=== PATIENT | male | born 2000 | race American Indian/Alaskan Native ===

== ENCOUNTER 2020-09-19 17:06 | Emergency (ER) | payer OTHER ==
--- NOTE | 2020-09-19 17:52 | Event Note ---
ED Screening Note Date of service: 09/19/20 Time: 17:50 ED Screening Note: 20-year-old male patient presents to emergency department for mental health evaluation. He has been exhibiting delusions and hallucinations. He is accompanied by security; [address] General: Awake, alert, no acute distress. Neck: Supple. Full range of motion intact. Cardiovascular: Normal peripheral perfusion. Pulmonary: No respiratory distress. Patient is speaking normally without use of accessory muscles. Skin: No apparent rashes or lesions. Neurological: No facial asymmetry. Speech is clear. Follows commands. Patient is alert and oriented. Musculoskeletal: Moves all four extremities spontaneously with normal range of motion. Psych: Cooperative. Circumstantial speech. This initial assessment/diagnostic orders/clinical plan/treatment(s) is/are subject to change based on patients health status, clinical progression and re- assessment by fellow clinical providers in the ED. Further treatment and workup at subsequent clinical providers discretion. Patient/guardian urged not to elope from the ED as their condition may be serious if not clinically assessed and managed.
[2020-09-19] MEDS ORDERED: HALOPERIDOL LACTATE 5 MG/1 ML INJ IM PRN (18:02)
--- NOTE | 2020-09-19 18:03 | Emergency Department Report ---
ED General Adult HPI - General Chief complaint: Psych Stated complaint: OFF MEDICATION PUI?: No Time Seen by Provider: 09/19/20 18:01 Source: patient, EMS ( EMS documentation not available at time of chart dictation ), RN notes reviewed Mode of arrival: Ambulatory Limitations: Other (Acute psychosis) - History of Present Illness Initial comments: The patient was evaluated in the emergency department for symptoms described in the history of present illness. He/she was evaluated in the context of the global COVID-19 pandemic, which necessitated consideration that the patient might be at risk for infection with the virus that causes COVID-19. Institutional protocols and algorithms that pertain to the evaluation of patient s at risk for COVID-19 are in a state of rapid change based on information released by regulatory bodies including the CDC and federal and state organizations. These policies and algorithms were followed during the patient's care in the emergency department. Please note that these policies, procedures and recommendations changed on a rapid basis. Primary CARE doctor: Wilkeson rei This patient is a 20-year-old gentleman who appears to have a history of bipolar disorder. He also has a history of schizophrenia. He is supposed to be on olanzapine, 5 mg. He is apparently brought to the hospital today on 1012, for acute psychosis. As per enclosed psychiatric documentation, patient was found to be tangential, out of touch with reality, acute psychosis, "thinks he is Infinity years old, not med compliant." Patient also was documented to be unable to care for self, circumstantial, and taking herbs. The patient himself denies physical pain. The patient is acutely psychotic. The patient cannot describe the qualitative nature of his symptoms, exacerbating factors, relieving factors, or aggravating factors. As per nursing documentation, patient indicated that he was here "because I need help with my life." Patient stated "I hear the souls of white people." He also indicated that he will take his medications. Patient is disorganized and psychotic, not able to describe qualitative nature of his symptoms, exacerbating factors, relieving factors, or aggravating factors. -: unknown Quality: other Consistency: other Improves with: other Worsens with: other Associated Symptoms: other - Related Data Allergies Allergy/AdvReac Type Severity Reaction Status Date / Time No Known Allergies Allergy Unverified 09/19/20 17:45 ED Review of Systems ROS: Stated complaint: OFF MEDICATION Other details as noted in HPI Comment: Unobtainable due to pts medical conditions (Acute psychosis) Cardiovascular: denies: chest pain Gastrointestinal: denies: abdominal pain ED Past Medical Hx - Past Medical History Previous Medical History?: Yes Hx Psychiatric Treatment: Yes (bipolar) - Social History Smoking Status: Never Smoker Substance Use Type: Alcohol, Marijuana ED Physical Exam - General Limitations: Other (Acute psychosis) General appearance: alert, in no apparent distress - Head Head exam: Present: atraumatic, normocephalic - Eye Eye exam: Present: normal appearance, PERRL, EOMI. Absent: nystagmus - ENT ENT exam: Present: normal exam, normal orophraynx, mucous membranes moist, normal external ear exam - Neck Neck exam: Present: normal inspection, full ROM. Absent: tenderness, meningismus - Respiratory Respiratory exam: Present: normal lung sounds bilaterally. Absent: respiratory distress, wheezes, rales, rhonchi, stridor, decreased breath sounds - Cardiovascular Cardiovascular Exam: Present: regular rate, normal rhythm, normal heart sounds. Absent: bradycardia, tachycardia, irregular rhythm, systolic murmur, diastolic murmur, rubs, gallop - GI/Abdominal GI/Abdominal exam: Present: soft. Absent: distended, tenderness, guarding, rebound, rigid, pulsatile mass - Rectal Rectal exam: Present: deferred - Extremities Exam Extremities exam: Present: normal inspection, full ROM, other (2+ pulses noted in the bilateral upper and lower extremities. There is no palpable cord. negative Homans sign. Muscular compartments are soft. The pelvis is stable.). Absent: pedal edema, calf tenderness - Back Exam Back exam: Present: normal inspection, full ROM. Absent: tenderness, CVA tenderness (R), CVA tenderness (L), paraspinal tenderness, vertebral tenderness - Neurological Exam Neurological exam: Present: alert, normal gait, other (No facial droop. Tongue midline. Extraocular movements intact bilaterally. Facial sensation intact to light touch in V1, V2, V3 distribution bilaterally. 5 and a 5 strength in 4 extremities. Sensation intact to light touch in 4 extremities.) - Psychiatric Psychiatric exam: Present: agitated, flat affect. Absent: homicidal ideation, suicidal ideation - Skin Skin exam: Present: warm, dry, intact, normal color. Absent: rash ED Course Vital Signs 09/19/20 17:45 Temperature 98.5 F Pulse Rate 97 H Respiratory 16 Rate Blood Pressure 145/92 O2 Sat by Pulse 96 Oximetry - Reevaluation(s) Reevaluation #1: 09/19/20 18:18 Differential diagnosis, including but not limited to: Psychosis, medical clearance for psychiatric placement Assessment and plan: 20-year-old gentleman, who is afebrile, with reassuring vital signs, who walks with a steady gait, who has a nonfocal motor/neurologic examination, presenting on a signed 1013, with acute psychosis. We will confirm his psychiatric history by discussing with Wilkeson. He arrives with a signed 1013. He is placed on hold status. Appropriate laboratory studies, including screening COVID-19 study will be obtained. We anticipate that this patient will be medically cleared for psychiatric placement shortly. 09/19/20 18:31 Reevaluation #2: 09/19/20 18:44 called [facility] and discussed with Dr Bonner this patient according to [facility] has a known history of mood disorder, possible anxiety, but does not have a known existing diagnosis of schizophrenia, or bipolar disorder. TSH ordered. Noncontrast CT scan of the brain ordered. Elevated CK reviewed and appreciated. Does not meet definition criteria for rhabdomyolysis. IV fluids ordered. We have also reached out and left a voicemail for call back for listed phone number/family member; [phone] called number, left voicemail for call back, nobody answered 09/19/20 18:45 09/19/20 18:46 Reevaluation #3: 09/19/20 19:04 Patient's mother reported to the psychiatric matrix plater that the patient was diagnosed with schizophrenia and bipolar in 2019. He is also been off of his medications, and recreationally consuming mushrooms and THC. It is unclear where and at what facility the patient was diagnosed with these conditions. I do favor psychosis, however, we will continue with obtaining CT scan of the brain Reevaluation #4: 09/19/20 19:16 Mother has provided additional history to our psychiatric team. This patient was diagnosed with schizophrenia and bipolar by a doctor Nani Kent in 2019, started on olanzapine. Thus, this is not a new diagnosis, and CT scan of the brain is not indicated at this time. TSH pending. Otherwise, laboratory studies unremarkable. Patient will receive IV fluids for elevated CK. This does not represent an emergency medical contraindication to psychiatric admission, evaluation, consultation and placement. At this point in time, patient does not appear to have an emergent medical condition at this time which could preclude psychiatric admission, evaluation, consultation and placement 09/19/20 19:28 ED Medical Decision Making - Lab Data Result diagrams: 09/19/20 18:05 09/19/20 18:03 Vital Signs 09/19/20 17:45 Temperature 98.5 F Pulse Rate 97 H Respiratory 16 Rate Blood Pressure 145/92 O2 Sat by Pulse 96 Oximetry Lab Results 09/19/20 Range/Units 18:05 WBC 8.0 (4.5-11.0) K/mm3 RBC 5.38 H (3.65-5.03) M/mm3 Hgb 15.4 H (11.8-15.2) gm/dl Hct 45.8 H (35.5-45.6) % MCV 85 (84-94) fl MCH 29 (28-32) pg MCHC 34 (32-34) % RDW 12.8 L (13.2-15.2) % Plt Count 234 (140-440) K/mm3 Vital Signs 09/19/20 17:45 Temperature 98.5 F Pulse Rate 97 H Respiratory 16 Rate Blood Pressure 145/92 O2 Sat by Pulse 96 Oximetry Lab Results 09/19/20 09/19/20 09/19/20 Range/Units 18:03 18:05 18:05 WBC (4.5-11.0) K/mm3 RBC (3.65-5.03) M/mm3 Hgb (11.8-15.2) gm/dl Hct (35.5-45.6) % MCV (84-94) fl MCH (28-32) pg MCHC (32-34) % RDW (13.2-15.2) % Plt Count (140-440) K/mm3 Sodium 135 L (137-145) mmol/L Potassium 3.9 (3.6-5.0) mmol/L Chloride 99.0 (98-107) mmol/L Carbon Dioxide 26 (22-30) mmol/L Anion Gap 14 mmol/L BUN 19 (9-20) mg/dL Creatinine 0.9 (0.8-1.3) mg/dL Estimated GFR > 60 ml/min BUN/Creatinine Ratio 21 % Glucose 84 (75-100) mg/dL Calcium 9.9 (8.4-10.2) mg/dL Urine Color Straw (Yellow) Urine Turbidity Clear (Clear) Urine pH 7.0 (5.0-7.0) Ur Specific [place] 1.010 (1.003-1.030) Urine Protein <15 mg/dl (Negative) mg/dL Urine Glucose (UA) Neg (Negative) mg/dL Urine Ketones Neg (Negative) mg/dL Urine Blood Neg (Negative) Urine Nitrite Neg (Negative) Urine Bilirubin Neg (Negative) Urine Urobilinogen < 2.0 (<2.0) mg/dL Ur Leukocyte Esterase Neg (Negative) Urine WBC (Auto) < 1.0 (0.0-6.0) /HPF Urine RBC (Auto) 1.0 (0.0-6.0) /HPF U Epithel Cells (Auto) < 1.0 (0-13.0) /HPF U Marijuana (THC) Screen Presumptive positive 09/19/20 Range/Units 18:05 WBC 8.0 (4.5-11.0) K/mm3 RBC 5.38 H (3.65-5.03) M/mm3 Hgb 15.4 H (11.8-15.2) gm/dl Hct 45.8 H (35.5-45.6) % MCV 85 (84-94) fl MCH 29 (28-32) pg MCHC 34 (32-34) % RDW 12.8 L (13.2-15.2) % Plt Count 234 (140-440) K/mm3 Sodium (137-145) mmol/L Potassium (3.6-5.0) mmol/L Chloride (98-107) mmol/L Carbon Dioxide (22-30) mmol/L Anion Gap mmol/L BUN (9-20) mg/dL Creatinine (0.8-1.3) mg/dL Estimated GFR ml/min BUN/Creatinine Ratio % Glucose (75-100) mg/dL Calcium (8.4-10.2) mg/dL Urine Color (Yellow) Urine Turbidity (Clear) Urine pH (5.0-7.0) Ur Specific [place] (1.003-1.030) Urine Protein (Negative) mg/dL Urine Glucose (UA) (Negative) mg/dL Urine Ketones (Negative) mg/dL Urine Blood (Negative) Urine Nitrite (Negative) Urine Bilirubin (Negative) Urine Urobilinogen (<2.0) mg/dL Ur Leukocyte Esterase (Negative) Urine WBC (Auto) (0.0-6.0) /HPF Urine RBC (Auto) (0.0-6.0) /HPF U Epithel Cells (Auto) (0-13.0) /HPF U Marijuana (THC) Screen Critical care attestation.: If time is entered above; I have spent that time in minutes in the direct care of this critically ill patient, excluding procedure time. ED Disposition Clinical Impression: Acute psychosis, Medical clearance for psychiatric admission, Elevated CK Disposition: DC/TX-65 PSY HOSP/PSY UNIT Is pt being admited?: No Does the pt Need Aspirin: No Condition: Good Referrals: PRIMARY CARE, [Primary Care Provider] - 3-5 Days
[2020-09-19 18:13] LABS: Hematocrit 45.8 % (35.5-45.6); Hemoglobin 15.4 gm/dl (11.8-15.2); Mean Corpuscular HGB Conc 34 % (32-34); Mean Corpuscular Volume 85 fl (84-94); Platelet Count 234 K/mm3 (140-440); Red Blood Count 5.38 M/mm3 (3.65-5.03); Red Cell Distribution Width 12.8 % (13.2-15.2)
[2020-09-19 18:22] LABS: Bilirubin,Urine NEG (Negative); Blood,Urine NEG (Negative); Color,Urine Straw (Yellow); Protein,Urine <15 mg/dL mg/dL (Negative); Urobilinogen,Urine < 2.0 mg/dL (<2.0)
[2020-09-19 18:26] LABS: BUN/Creatinine Ratio 21; Blood Urea Nitrogen 19 mg/dL (9-20); Calcium 9.9 mg/dL (8.4-10.2); Hemolysis Index 11
[2020-09-19 18:26] LABS: Amphetamine Screen,Urine PRESUMPTIVE NEGATIVE; Benzodiazepines Screen,Urine PRESUMPTIVE NEGATIVE; Cannabinoid Screen,Urine PRESUMPTIVE POSITIVE; Cocaine Screen,Urine PRESUMPTIVE NEGATIVE; Methadone Screen,Urine PRESUMPTIVE NEGATIVE; Opiate Screen,Urine PRESUMPTIVE NEGATIVE
[2020-09-19 18:28] LABS: WBC,Urine < 1.0 /HPF (0.0-6.0)
[2020-09-19] MEDS ORDERED: LACTATED RINGERS 2,000 ML IV ONE (18:34)
[2020-09-19] MEDS: LORazepam 2 MG/ML VIAL IM PRN (19:56)
[2020-09-20 06:36] VITALS: BP 104/54
--- NOTE | 2020-09-20 09:53 | Consultation ---
History of Present Illness - Reason for Consult Consult date: 09/20/20 Reason for consult: MHE Requesting physician: JANNA JEAN - History of Present Psychiatric Illness Per ED Provider: This patient is a 20-year-old gentleman who appears to have a history of bipolar disorder. He also has a history of schizophrenia. He is supposed to be on olanzapine, 5 mg. He is apparently brought to the hospital today on 1013, for acute psychosis. As per enclosed psychiatric documentation, patient was found to be tangential, out of touch with reality, acute psychosis, "thinks he is Infinity years old, not med compliant." Patient also was documented to be unable to care for self, circumstantial, and taking herbs. The patient himself denies physical pain. The patient is acutely psychotic. The patient cannot describe the qualitative nature of his symptoms, exacerbating factors, relieving factors, or aggravating factors. As per nursing documentation, patient indicated that he was here "because I need help with my life." Patient stated "I hear the souls of white people." He also indicated that he will take his medications. PSYCH HPI Patient is a 20-year-old single, unemployed -[place] male who resides with family with past psychiatric history of bipolar and schizophrenia since age of 13 and no other significant past medical history who was admitted to the ED with chief complaint of acute psychosis and noncompliance with outpatient medication. 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 Patient states that he is here so that he can be better, says he does not really know what happened yesterday hopefully he did not do anything crazy. Patient states that he no longer hearing voices except a condition that is blowing. Patient admits to use of pills like Percocet or Vicodin in the past but states he has not used anything recently. he states he is unable to recall any medication that he currently takes Patient appears disorganized, baseline unknown PAST PSYCHIATRIC HISTORY Diagnoses: Bipolar schizophrenia Suicide attempts or Self-harm behavior: none reported Prior psychiatric hospitalizations: yes Substance Abuse history: pain pills Previous psychiatric medications tried: yes Outpatient treatment: does not know PAST MEDICAL HISTORY: none Family Psychiatric History: None reported or documented SOCIAL HISTORY Marital Status: single Living Arrangements: with family Employment Status: unemployed Access to guns/weapons: none Education: 7th grade History of Abuse: none reported Legal History: REVIEW OF SYSTEMS Constitutional: Negative for weight loss ENT: Negative for stridor Respiratory: Negative for cough or hemoptysis All other systems reviewed and are negative MENTAL STATUS EXAMINATION General Appearance and Behavior: Age appropriate, good hygiene, not wearing appropriate clothes, good eye contact, cooperative polite with questioning. Cooperation: Participating/engaged Psychomotor Behavior: Psychomotor normal Mood: Good Affect and affective range: euthymic, euphoric Thought Process:circumstatial , Illogical, Thought Content: Flight of ideas, disorganized Speech: pressured, loud volume at times Intellectual Functioning: Average Suicidal Ideation: Denies SI Homicidal Ideation: Denies HIl Impulse Control: Impaired Insight and Judgment: Limited insight and judgment Memory: Normal, Attention: Divided attention impaired Orientation: Alert, oriented. Assessment and Plan - Psychiatric problem (1) Bipolar 1 disorder with moderate mason Current Visit: Yes Status: Acute Treatment Plan MEDICATIONS: Risks, benefits and alternatives of medications discussed with the patient, questions answered and consent obtained from patient. PSYCHOTHERAPY: Supportive psychotherapy provided MEDICAL: Per primary team DELIRIUM PRECAUTIONS: Please re-orient patient frequently, keep lights on during the day, and minimize benzodiazepines and opiates as these medications could worsen patient's confusion. OUT AND OUT CIGAR MAKER HAND: DISPOSITION: Do Recommend acute inpatient psychiatric hospitalization at this time. Case discussed with Dr. Hampton who agrees with current disposition LEGAL STATUS: 1013 FOLLOW-UP: Will follow Thank you for the consult. Please contact with any questions and/or concerns. Medications and Allergies Allergies Allergy/AdvReac Type Severity Reaction Status Date / Time No Known Allergies Allergy Unverified 09/19/20 17:45 Active Meds: Active Medications Haloperidol Lactate (Haloperidol Lactate 5 Mg/1 Ml Inj) 5 mg IM Q6HR PRN PRN Reason: Agitation Last Admin: 09/19/20 19:58 Dose: 5 mg Documented by: Lorazepam (Lorazepam 2 Mg/Ml Vial) 2 mg IM Q4HR PRN PRN Reason: Agitation Last Admin: 09/19/20 19:56 Dose: 2 mg Documented by: Mental Status Exam - Vital signs Last Vital Signs Temp 97.6 F 09/20/20 06:30 Pulse 70 09/20/20 06:30 Resp 18 09/20/20 06:30 BP 104/54 09/20/20 06:30 Pulse Ox 98 09/20/20 06:30 Results Result Diagrams: 09/19/20 18:05 09/19/20 18:03 Abnormal lab results 09/19/20 09/19/20 09/19/20 Range/Units 18:03 18:03 18:05 RBC 5.38 H (3.65-5.03) M/mm3 Hgb 15.4 H (11.8-15.2) gm/dl Hct 45.8 H (35.5-45.6) % RDW 12.8 L (13.2-15.2) % Sodium 135 L (137-145) mmol/L Total Creatine Kinase (55-170) units/L Salicylates (2.8-20.0) mg/dL Acetaminophen 5.0 L (10.0-30.0) ug/mL Valproic Acid (50-100) ug/mL 09/19/20 09/19/20 09/20/20 Range/Units 18:05 18:09 07:34 RBC (3.65-5.03) M/mm3 Hgb (11.8-15.2) gm/dl Hct (35.5-45.6) % RDW (13.2-15.2) % Sodium (137-145) mmol/L Total Creatine Kinase 1785 H 1569 H (55-170) units/L Salicylates < 0.3 L (2.8-20.0) mg/dL Acetaminophen (10.0-30.0) ug/mL Valproic Acid < 2.8 L (50-100) ug/mL All other labs normal. Assessment and Plan - Psychiatric problem (1) Bipolar 1 disorder with moderate mason Current Visit: Yes Status: Acute
[2020-09-20] MEDS: LORazepam 2 MG/ML VIAL IM PRN (14:27)
== END 2020-09-20 19:14 ==
LOC: ED 17:06
DX: F23 Brief psychotic disorder (principal); R74.8 Abnormal levels of other serum enzymes; F25.0 Schizoaffective disorder, bipolar type; F12.90 Cannabis use, unspecified, uncomplicated; Z20.822 Contact with and (suspected) exposure to COVID-19; Z00.8 Encounter for other general examination
CPT/HCPCS: 36415; 80048; 80164; 80178; 80307; 81001; 82550; 83735; 84443; 85027; 96360; 96361; 96372; 99285; J1630; J2060; J7120; U0003; 80320; G0480